=== PATIENT | male | born 1995 | race Caucasian/White ===

== ENCOUNTER 2019-03-07 22:21 | Emergency (ER) | payer BC, MEDICAID ==
[~2019-03-07] VITALS: Ht 177.8 cm; Wt 129.0 kg
[2019-03-08] MEDS ORDERED: KETOROLAC 60MG/2ML VIAL IM STA (00:03)
[2019-03-08 00:24] LABS: EOSINOPHILS % 1.7 % (0.0-5.0); HEMATOCRIT. 48.8 % (42.0-52.0); HEMOGLOBIN. 16.6 g/dL (14.0-18.0); LYMPHOCYTES % 24.7 % (20.0-50.0); MEAN CORPUSCULAR HEMOGLOBIN 29.3 pg (28.0-32.0); MEAN CORPUSCULAR VOLUME 86.1 fL (80.0-94.0); MEAN PLATELET VOLUME 8.6 fl (7.4-10.4); MONOCYTES % 7.8 % (2.0-8.0); NEUTROPHILS % 64.8 % (40.0-76.0); PLATELET 273 x1000/uL (130-400); RED BLOOD CELL COUNT 5.67 mill/uL (4.7-6.1); RED CELL DISTRIBUTION WIDTH 13.4 % (11.6-14.6)
[2019-03-08 00:30] LABS: CHLORIDE 111 mEq/L (98-107)
[2019-03-08 00:34] LABS: CLARITY URINE CLEAR (CLEAR); COLOR URINE YELLOW (YELLOW); KETONES URINE TRACE (NEGATIVE); LEUKOCYTE ESTERASE URINE NEGATIVE (NEGATIVE); NITRITE URINE NEGATIVE (NEGATIVE); OCCULT BLOOD URINE NEGATIVE (NEGATIVE); PH URINE 5.5 (4.5-8.0); PROTEIN URINE NEGATIVE (NEGATIVE); SPECIFIC GRAVITY URINE 1.028 (1.005-1.030); UROBILINOGEN URINE 0.2 E.U./dL (0.2-1.0)
[2019-03-08 04:04] VITALS: BP 148/99
== END 2019-03-08 04:05 | disposition home or self-care (01) ==
LOC: ER 22:21
DX: R10.9 Unspecified abdominal pain (principal); R09.81 Nasal congestion; R05 Cough
CPT/HCPCS: 36415; 71045; 76770; 80048; 81003; 85025; 96372; 99284; J1885